=== PATIENT | female | born 1995 | race Caucasian/White ===

== ENCOUNTER 2017-06-21 19:11 | Observation (INO) ==
[2017-06-21 19:58] LABS: Bilirubin,Urine Negative (Negative); Blood,Urine Negative (Negative); Clarity,Urine Cloudy (Clear); Color,Urine Yellow (Yellow); Glucose,Urine (UA) Normal (Normal); Ketones,Urine Negative (Negative); Leukocyte Esterase,Urine Negative (Negative); Nitrite,Urine Negative (Negative); Protein,Urine Negative (Neg-Trace); Specific Gravity,Urine 1.022 (1.010-1.025); Urobilinogen,Urine Normal (Normal)
[2017-06-21 20:00] LABS: Bacteria,Urine Moderate per hpf (None-Few); Hyaline Casts,Urine Few per lpf (None-Few); Squamous Epithelial Cell,Urine Many per lpf (None-Few); WBC,Urine 15-30 per hpf (0-3)
[2017-06-21 20:04] LABS: Amphetamine Screen,Urine Negative ng/mL (Cutoff=1000); Barbiturate Screen,Urine Negative ng/mL (Cutoff=200); Benzodiazepines Screen,Urine Negative ng/mL (Cutoff=200); Cannabinoid Screen,Urine Negative ng/mL (Cutoff = 50); Cocaine Screen,Urine Negative ng/mL (Cutoff= 300); Opiate Screen,Urine Negative ng/mL (Cutoff=300); Phencyclidine Screen,Urine Negative ng/mL (Cutoff=25)
[2017-06-21 20:15] LABS: Calcium Oxalate Crystals,Urine Present; RBC,Urine 0-3 per hpf (0-3)
--- NOTE | 2017-06-21 20:24 | OB/GYN Progress Note ---
Date of Encounter: 06/21/17 Time of Encounter: 20:22 - Assessment and Plan (1) 35 weeks gestation of Current Visit: Yes Status: Acute Admit for Observation due to complaint of contractions Continuous monitoring (2) uterine contractions in third trimester, antepartum Current Visit: Yes Status: Acute Irregular contractions noted on monitor. Cervix ft/50%/high Instructed to return when contractions become every 5 minutes for at least an hour with pain she is unable to walk or talk through them. (3) NST (non-stress test) reactive Current Visit: Yes Status: Acute FHR 125 bpm, moderate variability, +15x15 accels, no decels. Subjective - Subjective Principal diagnosis: contractions Interval history: Joselin is a 21-year-old G1 at 35w0d who arrives with complaint of contractions q10-15 minutes since [id number] today, lasting 30-60 seconds. Denies bleeding and leakage of fluid. Reports positive movement. Patient has a appointment in the office on 06/25/17. Antepartum ROS: movement normal, contractions, no loss of fluid, no vaginal bleeding Objective - Vital Signs Vital Signs: Intake and Output 06/21/17 06/21/17 06/21/17 07:59 15:59 23:59 Other: Weight 87.8 kg Patient Weight 06/21/17 23:59 Weight 87.8 kg - Exam FHR: category 1 FHR comments: Reactive NST 125 bpm, moderate variability, +15x15 accels, no decels. Auscultation: bilateral: normal Abdomen: Present: normal appearance, soft, gravid Uterus: Present: normal Cervical dilation: FT Cervix effacement: 50% station: High Comments: Per RN exam - Labs Labs: Abnormal lab results Urine Clarity Cloudy (Clear) A 06/21/17 19:45 Urine Microscopic WBC 15-30 per hpf (0-3) H 06/21/17 19:45 Ur Squamous Epith Cells Many per lpf (None-Few) H 06/21/17 19:45 Urine Bacteria Moderate per hpf (None-Few) H 06/21/17 19:45
== END 2017-06-21 20:30 | disposition home or self-care (01) ==
LOC: 1NENULAB
PROVIDERS: ADMIT Obstetrics & Gynecology; ATTEND Obstetrics & Gynecology

== ENCOUNTER 2017-07-14 00:02 | Observation (INO) ==
--- NOTE | 2017-07-14 01:59 | OB/GYN Progress Note ---
Date of Encounter: 07/14/17 Time of Encounter: 03:15 - Assessment and Plan (1) 38 weeks gestation of Current Visit: Yes Status: Acute (2) Nausea and vomiting during Current Visit: Yes Status: Acute Serial cervical exams without changes Patient able to keep PO and fluid intake without difficulty at labor and delivery discharge home with zofran 4mg PO daily follow up with outpatient care patient demonstrates understanding and is agreeable to plan discharge with labor and when to return to triage precautions Subjective - Subjective Principal diagnosis: Peripartum nausea and vomiting Interval history: Ms. Morris is a 21 year old at 38 weeks and 2 days who presents to labor and delivery for nausea and vomiting for the last 2 days. She reports that she has not been able to keep PO intake since Saturday morning, but admits to be able to keep fluids down. Reports 2 episodes of post-prandial emesis today. Denies hematemesis. She reports good movement, denies contractions , vaginal bleeding, leakage of fluid. Admits to occasional headaches and vision changes. Denies CP, SOB, epigastric pain, dysuria. complicated by Varicella non-immune, blood type A negative with Rhogam at 28 weeks, small bilateral choroid plexus cyst of fetus that have resolved on 05/09/17 ultrasound. Blood type: A- GBS: Negative Hepatitis B Antigen: Nonreactive HIV Antibody: Nonreactive T Pallidum Ab: Negative Rubella IgG: Positive Varicella IgG: Negative Antepartum ROS: movement normal, contractions, no loss of fluid, no vaginal bleeding Objective - Exam FHR: auscultation normal FHR comments: baseline 135 Auscultation: bilateral: normal Abdomen: Present: normal appearance, soft, gravid Uterus: Present: normal, firm, other (nontender) Cervical dilation:
[2017-07-14 04:51] LABS: Bilirubin,Urine Negative (Negative); Blood,Urine Small (Negative); Clarity,Urine Cloudy (Clear); Color,Urine Yellow (Yellow); Glucose,Urine (UA) Normal (Normal); Ketones,Urine Negative (Negative); Nitrite,Urine Negative (Negative); Protein,Urine Trace mg/dL (Neg-Trace); Specific Gravity,Urine 1.026 (1.010-1.025); Urobilinogen,Urine Normal (Normal)
[2017-07-14 04:52] LABS: Leukocyte Esterase,Urine Negative (Negative)
[2017-07-14 04:57] LABS: Amphetamine Screen,Urine Negative ng/mL (Cutoff=1000); Barbiturate Screen,Urine Negative ng/mL (Cutoff=200); Benzodiazepines Screen,Urine Negative ng/mL (Cutoff=200); Cannabinoid Screen,Urine Negative ng/mL (Cutoff = 50); Cocaine Screen,Urine Negative ng/mL (Cutoff= 300); Opiate Screen,Urine Negative ng/mL (Cutoff=300); Phencyclidine Screen,Urine Negative ng/mL (Cutoff=25)
[2017-07-14 05:23] LABS: Calcium Oxalate Crystals,Urine Present; Squamous Epithelial Cell,Urine Few per lpf (None-Few)
== END 2017-07-14 03:30 | disposition home or self-care (01) ==
LOC: 1NENULAB
PROVIDERS: ADMIT Advanced Practice Midwife; ATTEND Advanced Practice Midwife

== ENCOUNTER 2017-07-19 22:33 | Inpatient (IN) ==
[2017-07-19 12:56] LABS: Basophils % 0.2 %; Eosinophils # 0.1 K/mcL (0.0-0.6); Eosinophils % 1.5 %; Hematocrit 34.7 % (35.3-44.9); Hemoglobin 11.4 g/dL (11.5-15.4); Immature Granulocytes % 1.3 % (0-4); Lymphocytes # 1.7 K/mcL (0.6-4.6); Lymphocytes % 18.4 %; Mean Corpuscular HGB Conc 32.9 g/dL (31.6-35.5); Mean Corpuscular Hemoglobin 29.1 pg (28.0-33.3); Mean Corpuscular Volume 88.5 fL (83.0-100.0); Mean Platelet Volume 12.1 fL (9.4-12.4); Monocytes % 10.7 %; Neutrophils # 6.4 K/mcL (1.6-8.9); Platelet Count 202 K/mcL (140-400); Red Blood Count 3.92 M/mcL (3.82-4.97); Red Cell Distribution Width 12.8 % (11.5-14.5); Segmented Neutrophils % 67.9 %
[2017-07-19 13:23] LABS: Protein/Creatinine Ratio,Urine 0.17 mg/mg (0.00-0.20)
[2017-07-19 13:25] LABS: Alanine Aminotransferase 9 Units/L (7-52); Aspartate Amino Transferase 15 Units/L (13-39); BUN/Creatinine Ratio 12 (6-26); Blood Urea Nitrogen 6 mg/dL (6-20); Lactate Dehydrogenase 147 Units/L (140-271); Uric Acid 4.9 mg/dL (2.3-7.6); eGFR For African Americans > 60 (> 60); eGFR For Non-African Americans > 60 (> 60)
--- NOTE | 2017-07-19 15:20 | OB/GYN History & Physical ---
Date of Encounter: 07/19/17 Time of Encounter: 15:16 Assessment and Plan (1) Gestational hypertension affecting first Current visit: Yes Status: Acute PIH labs WNL. BP's mild range. Admit for IOL due to gestational hypertension at term. POC discussed with Dr. Olvera (2) 39 weeks gestation of Current visit: Yes Status: Acute History of Present Illness Chief complaint: elevated blood pressure HPI: Ms. Morris is a 21 year old female presenting at 39 weeks gestation from office for elevated blood pressure. She reports slight headache for the last 30 minutes. She denies any other complaints. Good FM. Blood type A negative Rubella immune Serologies negative GBS negative Past Med Surg Social Fam HX - Past Medical History Medical history: no medical history Psychiatric history: no psych history - Past Surgical History Surgical History: cholecystectomy - Social History Smoking Status: Never smoker Smokeless Tobacco Status: No Alcohol use: none Drug use: none Obstetrical History - Pregnancies : 1 Medications and Allergies Tablet 1 tab PO DAILY 06/21/17 [History] Ondansetron HCl [Zofran] 4 mg PO DAILY #5 tablet 07/14/17 [Rx] 3 Allergy/AdvReac Type Severity Reaction Status Date / Time No Known Allergies Allergy Verified 06/21/17 19:40 Review of System OB All systems PM: reviewed and no additional remarkable complaints except as stated Exam - Constitutional Constitutional: well developed, well nourished, no acute distress - HEENT HEENT: Mucus Membranes Moist - Lungs Respiratory exam: CTAB - Cardiovascular Cardiovascular exam: RRR - Abdomen Abdomen: Present: gravid, non tender - Extremities Extremities exam: pedal edema (1+ bilaterally, no erythema or warmth) Deep Tendon Reflex Grade: 2+ Normal - Vulva Vulva: bilateral: normal - Vagina Vagina: Present: normal moisture - Cervix Dilation: 2 Effacement: 80 Station: -1 - Uterus Uterus exam: Present: normal size (EFW by perla 8 lbs) - Anus/Rectum Anus/Rectum: Present: normal perianal skin Results Result Diagrams: 07/19/17 12:28 07/19/17 12:28 Abnormal lab results Hgb 11.4 g/dL (11.5-15.4) L 07/19/17 12:28 Hct 34.7 % (35.3-44.9) L 07/19/17 12:28 Creatinine 0.50 mg/dL (0.60-1.20) L 07/19/17 12:28 Urine Total Protein 24 mg/dL (1-14) H 07/19/17 12:28 All other labs normal.
--- NOTE | 2017-07-19 17:19 | OB Labor Progress Note ---
Date of Encounter: 07/19/17 Time of Encounter: 17:17 Labor Progress Note - Subjective Subjective: Pt denies complaints at this time. - Cervix Cervix: 3/80/-1 - Heart Tones Heart Tones: Category I - [place]: irregular - Interventions Interventions: Nunez balloon placed in cervix using sterile technique. Balloon inflated with 60ml sterile water. Pt tolerated well. - Plan Plan: Continue to monitor. Allow intermittent monitoring and ambulation.
--- NOTE | 2017-07-19 19:31 | OB Labor Progress Note ---
Date of Encounter: 07/19/17 Time of Encounter: 19:10 Labor Progress Note - Subjective Subjective: Pt reports some menstrual type cramping - Cervix Cervix: 5-6/80/-1 - Heart Tones Heart Tones: Category I - [place]: irregular - Interventions Interventions: AROM for small amount blood tinged fluid - Plan Plan: Continue to monitor. Will augment with pitocin if needed. Anticipate .
[~2017-07-19 22:33] MED LIST: *HR* Nalbuphine 20 MG/ML AMPUL IVP PRN; Famotidine 20 MG/2 ML VIAL IVP PRN; Metoclopramide 10 MG/2 ML VIAL IVP PRN; Naloxone 0.4 MG/ML INJ IVP PRN; Ondansetron 4 MG/2 ML VIAL IVP PRN; Ringers Solution, Lactated 1,000 ML IVC SCH; Ringers Solution, Lactated 1,000 ML ONE
[2017-07-19] MEDS ORDERED: Oxytocin 20 units/ LR 1000 mL 20 UNIT/1,000 ML BAG IVC SCH (22:45)
[2017-07-20] MEDS ORDERED: Lidocaine 1% 20 ML MDV ID ONE (00:08)
--- NOTE | 2017-07-20 01:58 | OB/GYN Procedure Note ---
Delivery - Delivery Date: 07/20/17 Provider: Medina Dave Intrapartum events: none Delivery induction: cordero Delivery augmentation: rupture of membranes Delivery monitor: internal FHT, internal uterine Anesthesia: intravenous Estimated Blood Loss: 400 - Infant (s) Infant A Delivery Date: 07/20/17 Infant Delivery Time: 01:18 Presentation: vertex Position: SHIRLEY Route of delivery: Gender: Female Viability: Viable Pounds: 8 Ounces: 2 Weight Gram: 3.685 kg at 1 minute: 8 at 5 mins: 9 Shoulder Dystocia: not encountered Specimens collected: cord blood Placenta: spontaneous Cord: nuchal cord, 3 umbilical vessels, nuchal reduced - Repair Episiotomy: none Laceration Description: Labial (bilateral labial with repair) - Complications Delivery complications: uterine atony Delivery comments: Pt pushed effectively to for viable female "Emely" weighing 8lbs 2oz with apgars 8at one minute and 9 at five minutes. After pulsations ceased the cord was clamped and cut. Bilateral labial lacerations were repaired with 2-0 monocryl and then the placenta delivered spontaneous and intact. Uterine atony noted after delivery of the placenta for which cytotec was given. EBL 400ml. Mother and baby stable in DR following procedure. - Disposition Mom disposition: stable in LDR disposition: stable in LDR
[2017-07-20] MEDS ORDERED: miSOPROStol 100 MCG TABLET PO STA (03:32)
[2017-07-20] MEDS ORDERED: Benzocaine/Menthol 56 GM AEROSOL SPRAY TP PRN (03:32)
[2017-07-20] MEDS ORDERED: Measles/Mumps/Rubella Vacc 0.5 ML VIAL SQ PRN (03:32)
[2017-07-20] MEDS ORDERED: Acetaminophen 325 MG TABLET PO PRN (03:32)
[2017-07-20] MEDS ORDERED: Rho Immune Globulin 1,500 UNIT SYRINGE IM PRN (03:32)
[2017-07-20] MEDS ORDERED: Oxytocin 20 units/ LR 1000 mL 20 UNIT/1,000 ML BAG IVC SCH (03:32)
[2017-07-20] MEDS ORDERED: Lanolin 7 G OINT...G. TP PRN (03:32)
[2017-07-20] MEDS: Ibuprofen 600 MG TABLET PO PRN ×2 (05:15→15:38)
[2017-07-20] MEDS: Prenatal Vit/FA 1 EACH TABLET PO SCH (08:15)
[2017-07-20 08:44] LABS: Basophils % 0.2 %; Hematocrit 30.6 % (35.3-44.9); Hemoglobin 10.2 g/dL (11.5-15.4); Immature Granulocytes % 0.8 % (0-4); Lymphocytes # 1.5 K/mcL (0.6-4.6); Lymphocytes % 6.6 %; Mean Corpuscular HGB Conc 33.3 g/dL (31.6-35.5); Mean Corpuscular Hemoglobin 29.5 pg (28.0-33.3); Mean Corpuscular Volume 88.4 fL (83.0-100.0); Mean Platelet Volume 12.2 fL (9.4-12.4); Monocytes # 1.9 K/mcL (0.0-1.3); Monocytes % 8.1 %; Neutrophils # 19.3 K/mcL (1.6-8.9); Platelet Count 204 K/mcL (140-400); Red Blood Count 3.46 M/mcL (3.82-4.97); Segmented Neutrophils % 84.3 %
[2017-07-20 08:59] LABS: Basophils # 0.1 K/mcL (0.0-0.2)
[2017-07-20 10:18] LABS: Amphetamine Screen,Urine Negative ng/mL (Cutoff=1000); Barbiturate Screen,Urine Negative ng/mL (Cutoff=200); Benzodiazepines Screen,Urine Negative ng/mL (Cutoff=200); Cannabinoid Screen,Urine Negative ng/mL (Cutoff = 50); Cocaine Screen,Urine Negative ng/mL (Cutoff= 300); Opiate Screen,Urine Negative ng/mL (Cutoff=300); Phencyclidine Screen,Urine Negative ng/mL (Cutoff=25)
[2017-07-20] MEDS ORDERED: miSOPROStol 100 MCG TABLET PO ONE (11:06)
[2017-07-21] MEDS: Ibuprofen 600 MG TABLET PO PRN (07:58)
[2017-07-21] MEDS: Prenatal Vit/FA 1 EACH TABLET PO SCH (07:59)
[2017-07-21 08:10] VITALS: BP 131/87
[2017-07-21] MEDS ORDERED: Lidocaine -MPF 1% 5 ML AMPUL INFILT ONE (08:22)
[2017-07-21] MEDS ORDERED: Etonogestrel 68 MG IMPLANT IL ONE (08:22)
--- NOTE | 2017-07-21 09:16 | Procedure Note ---
Date of procedure: 07/21/17 Pre-op diagnosis: undesired fertility, contraceptive education Post-op diagnosis: same Procedure: Pt was appropriately consented after risks and benefits of Nexplanon discussed. Skin of upper right arm cleansed with betadine. 3ml Lidocaine 1% infiltrated at site. Nexplanon was then inserted subdermally to the full length and the needle was retracted. Nexplanon palpated by myself and the patient. A pressure dressing was then applied. Pt tolerated procedure well. Anesthesia: local Surgeon: Medina Dave Was there an internal medicine physician assistant present: No Estimated blood loss (cc): 0 Specimen: none Pathology: none sent Condition: stable Disposition: no change
--- NOTE | 2017-07-21 09:20 | Discharge Summary ---
Date of Encounter: 07/21/17 Time of Encounter: 09:17 - Discharge Diagnosis (1) Gestational hypertension affecting first Priority: Secondary Status: Acute Comments: BP well controlled . No medications. (2) Vaginal delivery Priority: Primary Status: Acute Comments: Pt meeting all milestones. (3) Patient is a currently breast-feeding mother Priority: Secondary Status: Acute Comments: consult prior to discharge. Pt has breast pump at home. (4) Contraceptive education Priority: Secondary Status: Acute Comments: Nexplanon placed prior to discharge. (5) Rh negative status during Priority: Secondary Status: Acute Comments: Infant blood type A negative. Rhogam not needed. Qualifiers: Trimester: third trimester Qualified Code(s): O09.893 - Supervision of other high risk pregnancies, third trimester; Z67.91 - Unspecified blood type, Rh negative; Z67.91 - Unspecified blood type, Rh negative - Discharge Medications Prescriptions: Ibuprofen [Motrin] 600 mg PO Q6HR PRN #30 tablet PRN Reason: Cramping Docusate [Colace] 100 mg PO BID #30 capsule Home Medications: Tablet 1 tab PO DAILY 06/21/17 [History] Benzocaine/Menthol [place] [Dermoplast [place]] 1 appl TP QID PRN aerosol 07/21/17 [Rx] Docusate [Colace] 100 mg PO BID #30 capsule 07/21/17 [Rx] Ibuprofen [Motrin] 600 mg PO Q6HR PRN #30 tablet 07/21/17 [Rx] Lanolin [Lansinoh] 1 appl TP Q4HR PRN oint...g. 07/21/17 [Rx] Mupirocin [Bactroban Oint] 1 appl TP BID tube 07/21/17 [Rx] Allergies/Adverse Reactions: 3 Allergy/AdvReac Type Severity Reaction Status Date / Time No Known Allergies Allergy Verified 06/21/17 19:40 Data Procedures and tests throughout hospitalization: Laboratory Tests 07/19/17 07/19/17 07/19/17 12:28 12:28 12:28 WBC 9.5 RBC 3.92 Hgb 11.4 L Hct 34.7 L MCV 88.5 MCH 29.1 MCHC 32.9 RDW 12.8 Plt Count 202 MPV 12.1 Immature Gran % 1.3 Seg Neutrophils % 67.9 Lymphocytes % 18.4 Monocytes % 10.7 Eosinophils % 1.5 Basophils % 0.2 Neutrophils # 6.4 Lymphocytes # 1.7 Monocytes # 1.0 Eosinophils # 0.1 Basophils # 0.0 BUN 6 Creatinine 0.50 L Est GFR ( Amer) > 60 Est GFR (Non-Af Amer) > 60 BUN/Creatinine Ratio 12 Uric Acid 4.9 AST 15 ALT 9 Lactate Dehydrogenase 147 Urine Creatinine 140 Protein/Creatinin Ratio 0.17 Urine Total Protein 24 H Urine Opiates Screen Ur Barbiturates Screen Ur Phencyclidine Scrn Ur Amphetamines Screen U Benzodiazepines Scrn Urine Cocaine Screen U Marijuana (THC) Screen Baby's Blood Type Mother's Blood Type Rhogam Indicated 07/19/17 07/20/17 07/20/17 22:16 02:18 07:15 WBC 22.9 H D RBC 3.46 L Hgb 10.2 L Hct 30.6 L MCV 88.4 MCH 29.5 MCHC 33.3 RDW 13.0 Plt Count 204 MPV 12.2 Immature Gran % 0.8 Seg Neutrophils % 84.3 Lymphocytes % 6.6 Monocytes % 8.1 Eosinophils % 0.0 Basophils % 0.2 Neutrophils # 19.3 H Lymphocytes # 1.5 Monocytes # 1.9 H Eosinophils # 0.0 Basophils # 0.1 BUN Creatinine Est GFR ( Amer) Est GFR (Non-Af Amer) BUN/Creatinine Ratio Uric Acid AST ALT Lactate Dehydrogenase Urine Creatinine Protein/Creatinin Ratio Urine Total Protein Urine Opiates Screen Negative Ur Barbiturates Screen Negative Ur Phencyclidine Scrn Negative Ur Amphetamines Screen Negative U Benzodiazepines Scrn Negative Urine Cocaine Screen Negative U Marijuana (THC) Screen Negative Baby's Blood Type A RH NEGATIVE Mother's Blood Type A RH NEGATIVE Rhogam Indicated NO Labs on day of discharge: Labs from last 24 hours 07/19/17 22:16 Urine Opiates Screen Negative Ur Barbiturates Screen Negative Ur Phencyclidine Scrn Negative Ur Amphetamines Screen Negative U Benzodiazepines Scrn Negative Urine Cocaine Screen Negative U Marijuana (THC) Screen Negative Date of admission: 07/19/17 22:34 Primary care physician: PCP NONE Consults: 07/20/17 03:32 Consult to Soil Scientist [CONS] Routine Comment: Vaginal delivery, consult needed Discharging clinician: Medina Dave Anticipated date of discharge: 07/21/17 - Patient Status Disposition: Home, Self-Care Condition: Good Functional capacity at discharge: independent ambulation Overall status at discharge: patient is progressing back to baseline - Discharge Instructions Follow Up With: NONE,PCP [Primary Care Provider] - Medina Dave CNM [Non-Partnered Physician] - Additional Instructions: Perineal Care: Always wipe front to back Change your pad frequently Use your raz bottle with warm water and spray front to back Do not douche, use tampons, have sexual intercourse or put anything in your vagina for 4-6 weeks after delivery Bleeding: Vaginal bleeding can last up to 6 weeks Your menstrual period may return as early as 6 weeks after you are discharged from the hospital Fidel/Stitches Care: Vaginal Delivery Vaginal stitches will dissolve within 4-6 weeks Follow perineal care instructions Care Stitches will dissolve on their own If you have fidel, they will need to be removed in the doctors office within 5-7 days. You may shower with stitches or fidel Drip plan or soapy water over the incision to clean. Pat dry gently with a clean towel. Make sure you completely dry under the skin folds DO NOT USE powders, lotions, rubbing alcohol or hydrogen peroxide on or around your incision. This will slow your wound healing It is normal to have soreness, burning, tingling, itchiness and/or numbness as your incision heals Activity: Rest frequently Do not lift anything heavier than a gallon of milk, up to 10-15 pounds No driving for 1-2 weeks for Vaginal delivery No driving for 2-4 weeks for delivery Take stairs slowly, one at a time Gradually increase your daily activity until you are back to your normal routine Do not exercise until you have had your follow-up appointment Bathing: Take a shower daily Do not take a tub bath for the first 4 weeks Diet: Drink plenty of water and fruit juices Eat a well-balanced diet with foods high in fiber such as fruits and vegetables Depression: Your hormones have a major impact on your feelings and emotions. Hormone imbalance may cause changes in your mood, creating unfamiliar thoughts and actions. Support is available to help you understand and cope with these feelings and mood changes. If you answer yes to any of the following questions, please call your health care provider: Are you having trouble sleeping? Are you feeling isolated? Have you lost your appetite? Are you having thoughts of hurting yourself or others? WARNING SIGNS: Heavy bleeding from the vagina (blood is bright red and soaks a sanitary pad in an hour or less.) Passing a blood clot larger than your fist Discharge from the vagina that has a bad odor Temperature over 100.4 F, or if you feel cold and have chills An episiotomy site that is warm, swollen or oozing. Use a mirror if needed Urination (pee) that is painful, very red and swollen or leaking fluid An incision that is painful, very red and swollen and leaking fluid An incision that has come open Breasts that are painful or full with flu like symptoms Redness, warmth or swelling in the calf of your leg Trouble breathing, dizziness, visual disturbance or faintness *Notify your health care provider immediately or go to the nearest Emergency Room if you experience any of the above signs.* To contact the nurses station 24 hours a day, For non-urgent, routine questions, please call the office at - Diet and Activity Activity: increase activity as tolerated Diet: regular diet Hospital Course Reason for admission: induction of labor Delivery: Episiotomy: none Laceration: other (labial) Other procedures: none complications: none Discharge diagnosis: IUP at term delivered baby: female Hospital course: - Delivery Date: 07/20/17 Provider: Medina Dave Intrapartum events: none Delivery induction: cordero Delivery augmentation: rupture of membranes Delivery monitor: internal FHT, internal uterine Anesthesia: intravenous Estimated Blood Loss: 400 - Infant (s) A Delivery Date: 07/20/17 Delivery Time: Presentation: vertex Position: SHIRLEY Route of delivery: Gender: Female Viability: Viable Pounds: 8 Ounces: 2 Weight Gram: 3.685 kg at 1 minute: 8 at 5 mins: 9 Shoulder Dystocia: not encountered Specimens collected: cord blood Placenta: spontaneous Cord: nuchal cord, 3 umbilical vessels, nuchal reduced - Repair Episiotomy: none Laceration Description: Labial (bilateral labial with repair) - Complications Delivery complications: uterine atony - Disposition Mom disposition: home PPD#1 disposition: home with mother, Time Attestation: Total time spent providing and/or coordinating discharge services: Time Spent: Less than 30 minutes Exam - Constitutional Vitals: Temp Pulse Resp BP Pulse Ox 97.8 F 95 16 131/87 97 07/21/17 08:09 07/21/17 08:09 07/21/17 08:09 07/21/17 08:09 07/20/17 20:00 General appearance IM: A&O X 3 - Respiratory Respiratory exam: Present: CTAB - Cardiovascular Cardiovascular exam IM: Present: RRR - GI/Abdominal GI/Abdominal exam IM: soft - Uterine Tone: Firm Uterus Position: 1 Finger Below Umbilicus - Extremities Exam Extremities exam IM: Present: normal inspection, pedal edema (1+ bilaterally) - Neurological Exam Neurological exam: normal gait, oriented X3 - Psychiatric Additional comments: reports good mood - Other Additional findings: Pt desires Nexplanon for contraception
== END 2017-07-21 11:07 | disposition home or self-care (01) | DRG 560 ==
LOC: 1NENULAB → 1NENUOBS 07-20 03:31
PROVIDERS: ADMIT Obstetrics & Gynecology; ATTEND Obstetrics & Gynecology

== ENCOUNTER → 2021-10-26 13:49 | Observation (INO) ==
[2021-10-26 12:52] LABS: Basophils % 0.4 %; Eosinophils # 0.1 K/mcL (0.0-0.6); Eosinophils % 0.9 %; Hematocrit 36.9 % (35.3-44.9); Immature Granulocytes % 0.8 % (0-4); Lymphocytes # 2.3 K/mcL (0.6-4.6); Lymphocytes % 25.2 %; Mean Corpuscular HGB Conc 32.5 g/dL (31.6-35.5); Mean Corpuscular Hemoglobin 28.6 pg (28.0-33.3); Mean Corpuscular Volume 87.9 fL (83.0-100.0); Mean Platelet Volume 12.7 fL (9.4-12.4); Monocytes # 0.7 K/mcL (0.0-1.3); Monocytes % 7.8 %; Neutrophils # 5.9 K/mcL (1.6-8.9); Platelet Count 191 K/mcL (140-400); Red Cell Distribution Width 13.2 % (11.5-14.5); Segmented Neutrophils % 64.9 %; White Blood Count 9.1 K/mcL (4.3-11.1)
[2021-10-26 13:21] LABS: Alanine Aminotransferase 11 Units/L (7-52); Aspartate Amino Transferase 17 Units/L (13-39); BUN/Creatinine Ratio 11 (6-26); Blood Urea Nitrogen 8 mg/dL (6-20); Lactate Dehydrogenase 137 Units/L (140-271); Uric Acid 5.6 mg/dL (2.3-7.6); eGFR For African Americans > 60 (> 60); eGFR For Non-African Americans > 60 (> 60)
[2021-10-26 13:27] LABS: Protein/Creatinine Ratio,Urine 0.23 mg/mg (0.00-0.20)
[2021-10-26 13:40] LABS: Bacteria,Urine Few per hpf (None-Few); Bilirubin,Urine Negative (Negative); Blood,Urine Negative (Negative); Clarity,Urine Turbid (Clear); Color,Urine Light-Yellow (Yellow); Glucose,Urine (UA) Normal (Normal); Ketones,Urine 100 mg/dL (Negative); Leukocyte Esterase,Urine Trace (Negative); Mucus,Urine Few per lpf (None-Few); Nitrite,Urine Negative (Negative); Protein,Urine 30 mg/dL (Neg-Trace); RBC,Urine 0-3 per hpf (0-3); Squamous Epithelial Cell,Urine Few per hpf (None-Few); Urobilinogen,Urine Normal (Normal); WBC,Urine 0-3 per hpf (0-3)
== END | disposition home or self-care (01) ==
LOC: 1NENULAB
PROVIDERS: ADMIT Registered Nurse; ATTEND Registered Nurse

== ENCOUNTER 2021-10-28 05:54 | Inpatient (IN) ==
[2021-10-28] MEDS ORDERED: Naloxone 0.4 MG/ML INJ IVP PRN (06:03)
[2021-10-28] MEDS ORDERED: Ondansetron 4 MG/2 ML VIAL IVP PRN ×2 (06:03→12:53)
[2021-10-28] MEDS ORDERED: Metoclopramide 10 MG/2 ML VIAL IVP PRN ×2 (06:03→12:53)
[2021-10-28] MEDS ORDERED: Famotidine 20 MG/2 ML VIAL IVP PRN (06:03)
[2021-10-28] MEDS ORDERED: Lidocaine 1% 20 ML MDV INFILT PRN (06:03)
[2021-10-28] MEDS ORDERED: Ringers Solution, Lactated 1,000 ML IVC SCH ×2 (06:15→12:53)
[2021-10-28 06:40] LABS: Basophils % 0.4 %; Eosinophils # 0.1 K/mcL (0.0-0.6); Eosinophils % 0.5 %; Hematocrit 36.6 % (35.3-44.9); Hemoglobin 11.9 g/dL (11.5-15.4); Immature Granulocytes % 0.9 % (0-4); Lymphocytes # 3.1 K/mcL (0.6-4.6); Lymphocytes % 28.6 %; Mean Corpuscular HGB Conc 32.5 g/dL (31.6-35.5); Mean Corpuscular Hemoglobin 28.7 pg (28.0-33.3); Mean Corpuscular Volume 88.4 fL (83.0-100.0); Mean Platelet Volume 12.7 fL (9.4-12.4); Monocytes # 0.7 K/mcL (0.0-1.3); Monocytes % 6.8 %; Neutrophils # 6.9 K/mcL (1.6-8.9); Platelet Count 202 K/mcL (140-400); Red Blood Count 4.14 M/mcL (3.82-4.97); Red Cell Distribution Width 13.4 % (11.5-14.5); Segmented Neutrophils % 62.8 %; White Blood Count 10.9 K/mcL (4.3-11.1)
[2021-10-28] MEDS ORDERED: CeFAZolin 2,000 MG/120 ML BAG IVPB ONE (07:18)
[2021-10-28] MEDS ORDERED: OXYTOCIN/RINGERS LACTATE 10 UNIT/166.6 ML BAG IVC PRN (08:10)
[2021-10-28] MEDS ORDERED: Oxytocin 30 UNIT/503 ML BAG IVC PRN (08:10)
[2021-10-28] MEDS ORDERED: Bupivacaine/PF 0.75% in Dex 2 ML AMPUL INFILT ONE (09:01)
[2021-10-28] MEDS ORDERED: Ondansetron 4 MG/2 ML VIAL ONE (09:51)
[2021-10-28] MEDS ORDERED: Acetaminophen IV 1,000 MG/100 ML BAG IVPB ONE (09:51)
[2021-10-28] MEDS ORDERED: Ketorolac 30 MG/ML VIAL ONE (09:51)
[2021-10-28] MEDS ORDERED: *HR* Morphine Sulfate/PF 10 MG/10 ML AMPUL ONE (10:09)
[2021-10-28] MEDS ORDERED: Ringers Solution, Lactated 1,000 ML ONE (10:16)
[2021-10-28 10:17] LABS: Amphetamine Screen,Urine Negative ng/mL (Cutoff=1000); Barbiturate Screen,Urine Negative ng/mL (Cutoff=200); Benzodiazepines Screen,Urine Negative ng/mL (Cutoff=200); Cannabinoid Screen,Urine Negative ng/mL (Cutoff = 50); Cocaine Screen,Urine Negative ng/mL (Cutoff= 300); Opiate Screen,Urine Negative ng/mL (Cutoff=300); Phencyclidine Screen,Urine Negative ng/mL (Cutoff=25)
[2021-10-28] MEDS ORDERED: *HR* FentaNYL (PF) 100 MCG/2 ML VIAL IVP PRN (10:35)
[2021-10-28] MEDS ORDERED: *HR* OxyCODONE Immed Rel 5 MG TABLET PO PRN ×2 (10:35→12:53)
[2021-10-28] MEDS ORDERED: *HR* Nalbuphine 10 MG/ML AMPUL IV PRN (10:36)
[2021-10-28] MEDS ORDERED: Oxytocin 30 UNIT/503 ML BAG IVC SCH (12:53)
[2021-10-28] MEDS ORDERED: Rho Immune Globulin 1,500 UNIT SYRINGE IM ONE (12:53)
[2021-10-28] MEDS ORDERED: Simethicone 80 MG TAB.CHEW PO PRN (12:53)
[2021-10-28] MEDS: Ibuprofen 600 MG TABLET PO SCH ×2 (15:38→22:36)
[2021-10-28] MEDS: Acetaminophen 325 MG TABLET PO SCH ×2 (15:38→18:29)
[2021-10-29] MEDS: Ibuprofen 600 MG TABLET PO SCH ×3 (04:24→17:52)
[2021-10-29] MEDS: Acetaminophen 325 MG TABLET PO SCH ×3 (04:24→17:52)
[2021-10-29 04:47] LABS: Basophils % 0.4 %; Eosinophils % 0.2 %; Immature Granulocytes % 0.7 % (0-4); Lymphocytes # 2.4 K/mcL (0.6-4.6); Lymphocytes % 22.2 %; Mean Corpuscular HGB Conc 32.2 g/dL (31.6-35.5); Mean Corpuscular Hemoglobin 28.7 pg (28.0-33.3); Mean Corpuscular Volume 89.1 fL (83.0-100.0); Mean Platelet Volume 11.9 fL (9.4-12.4); Monocytes # 0.9 K/mcL (0.0-1.3); Monocytes % 8.5 %; Neutrophils # 7.3 K/mcL (1.6-8.9); Platelet Count 136 K/mcL (140-400); Red Blood Count 3.03 M/mcL (3.82-4.97); Red Cell Distribution Width 13.5 % (11.5-14.5); White Blood Count 10.7 K/mcL (4.3-11.1)
[2021-10-29 04:49] LABS: Hemoglobin 8.7 g/dL (11.5-15.4)
[2021-10-29] MEDS: Aspirin Enteric Coated 81 MG Tablet PO SCH (08:40)
[2021-10-29] MEDS: Prenatal Vit/FA 1 EACH TABLET PO SCH (08:40)
[2021-10-29 08:46] VITALS: O2SAT 98
[2021-10-30] MEDS: Acetaminophen 325 MG TABLET PO SCH ×2 (00:31→06:20)
[2021-10-30] MEDS: Ibuprofen 600 MG TABLET PO SCH ×2 (00:31→06:19)
[2021-10-30 07:23] VITALS: BP 112/76; PULSE 77; TEMP 98.3
[2021-10-30] MEDS: Prenatal Vit/FA 1 EACH TABLET PO SCH (08:36)
[2021-10-30] MEDS: Aspirin Enteric Coated 81 MG Tablet PO SCH (08:36)
[2021-10-30] MEDS ORDERED: Lidocaine/EPI 1:200k 2% PF 20 ML VIAL INFILT ONE ×2 (09:31→09:45)
[2021-10-30] MEDS ORDERED: Etonogestrel 68 MG IMPLANT IL ONE (09:31)
== END 2021-10-30 11:15 | disposition home or self-care (01) | DRG 784 ==
LOC: 1NENULAB 05:54 → 1NENUOBS 12:51
PROVIDERS: ADMIT Obstetrics & Gynecology; ATTEND Obstetrics & Gynecology